=== PATIENT | male | born 1990 | race Asian ===

== ENCOUNTER 2016-11-07 16:36 | Emergency (ER) | payer OTHER ==
[2016-11-07 19:35] LABS: Hematocrit 45 % (42-52); Hemoglobin 15.2 g/dl (14.0-18.0); Mean Corpuscular HGB Conc 34 g/dl (31-36); Mean Corpuscular Hemoglobin 30 pg (27-31); Mean Corpuscular Volume 87 fL (80-94); Mean Platelet Volume 8 um3 (7.4-10.4); Red Blood Count 5.14 10^6/ul (4.0-5.4); Red Cell Distribution Width 13 % (10.5-15); White Blood Count 11.8 10^3/ul (3.5-10.8)
[2016-11-07 19:43] LABS: Albumin 4.8 g/dL (3.2-5.2); BUN/Creatinine Ratio 17.5 (8-20); Calcium 9.8 mg/dL (8.6-10.3); EGFR African American 149.1 (>60); Globulin 3.2 g/dL (2-4); Magnesium 2.3 mg/dL (1.9-2.7); Potassium 3.9 mmol/L (3.5-5.0); Total Bilirubin 0.5 mg/dL (0.2-1.0)
--- NOTE | 2016-11-07 19:43 | ED ---
Jc Ann Janilya, scribed for Luís Tran MD on 11/07/16 at 1927 . Shortness of Breath - HPI Summary HPI Summary: [place] 26 y/o [place] [facility] [place] gradual onset of constant SOB starting approximately 3-4 days ago. Pt states that on 11/03, he was diagnosed w/ possible asthma at a student [facility]. In addition, pt presents w/ body numbness including upper and lower extremities, back, neck, and face. Pt states that he feels tingly sensations all over his body. What made him come to the ED is the persistence of the numbness that prevents the pt form falling asleep. Pt reports mild fever. - History of Current Complaint Chief Complaint: EDShortnessOfBreath Time Seen by Provider: 11/07/16 16:52 Hx Obtained From: Patient Onset/Duration: Gradual Onset, Lasting Days, Still Present Timing: Constant Current Severity: Moderate Dyspnea At: Rest Aggrevating Factors: Nothing Alleviating Factors: Nothing Associated Signs & Symptoms: Fever - Allergy/Home Medications Allergies/Adverse Reactions: Allergies Allergy/AdvReac Type Severity Reaction Status Date / Time No Known Allergies Allergy Verified 11/07/16 16:44 PMH/Surg Hx/FS Hx/Imm Hx Previously Healthy: Yes Infectious Disease History: No Infectious Disease History: Reports: Traveled Outside the [place] in Last 30 Days - [place] - Family History Known Family History: Positive: Cardiac Disease Negative: Hypertension, Diabetes - Social History Occupation: Student Alcohol Use: None Substance Use Type: Reports: None Smoking Status (MU): Never Smoked Tobacco Review of Systems Positive: Fever - mild Positive: Shortness Of Breath Positive: Paresthesia - all of body including all extremities, back, neck, and face; describes the sensation as "tingly" All Other Systems Reviewed And Are Negative: Yes Physical Exam Triage Information Reviewed: Yes Vital Signs On Initial Exam: Initial Vitals Temp Pulse Resp BP Pulse Ox 97.4 F 70 17 142/90 96 11/07/16 16:40 11/07/16 16:40 11/07/16 16:40 11/07/16 16:40 11/07/16 16:40 Vital Signs Reviewed: Yes Appearance: Positive: Well-Appearing, No Pain Distress Skin: Positive: Warm Eyes: Positive: EOMI, HARSHAD ENT: Positive: Hearing grossly normal Neck: Positive: Supple Respiratory/Lung Sounds: Positive: Breath Sounds Present, Decreased Breath Sounds Cardiovascular: Positive: RRR. Negative: Murmur Abdomen Description: Positive: Nontender, Soft Bowel Sounds: Positive: Present Musculoskeletal: Positive: Strength/ROM Intact Neurological: Positive: Sensory/Motor Intact, Alert, Oriented to Person Place, Time, CN Intact II-III, Normal Gait Psychiatric: Positive: Anxious - Rosmery Coma Scale Coma Scale Total: 15 Diagnostics - Vital Signs Vital Signs Temp Pulse Resp BP Pulse Ox 11/07/16 18:00 98.6 F 88 15 129/76 96 11/07/16 16:40 97.4 F 70 17 142/90 96 - Laboratory Lab Results: Lab Results 11/07/16 Range/Units 19:10 WBC 11.8 H (3.5-10.8) 10^3/ul RBC 5.14 (4.0-5.4) 10^6/ul Hgb 15.2 (14.0-18.0) g/dl Hct 45 (42-52) % MCV 87 (80-94) fL MCH 30 (27-31) pg MCHC 34 (31-36) g/dl RDW 13 (10.5-15) % Plt Count 241 (150-450) 10^3/ul MPV 8 (7.4-10.4) um3 Neut % (Auto) 90.7 H (38-83) % Lymph % (Auto) 8.1 L (25-47) % Nobles % (Auto) 1.1 (1-9) % Eos % (Auto) 0 (0-6) % Baso % (Auto) 0.1 (0-2) % Absolute Neuts (auto) 10.7 H (1.5-7.7) 10^3/ul Absolute Lymphs (auto) 1.0 (1.0-4.8) 10^3/ul Absolute Monos (auto) 0.1 (0-0.8) 10^3/ul Absolute Eos (auto) 0 (0-0.6) 10^3/ul Absolute Basos (auto) 0 (0-0.2) 10^3/ul Absolute Nucleated RBC 0 10^3/ul Nucleated RBC % 0 Result Diagrams: 11/07/16 19:10 11/07/16 19:10 Lab Statement: Any lab studies that have been ordered have been reviewed, and results considered in the medical decision making process. - Radiology CXR Xray Interpretation: No Acute Changes - IMPRESSION: normal Radiology Interpretation Completed By: ED Physician - Dr. Tran - EKG 1648 Cardiac Rate: NL - 67 bpm EKG Rhythm: Sinus Rhythm ST Segment: Normal Ectopy: None Re-Evaluation - Re-Evaluation First Eval Change: Improved - results d/w pt, explained no neuro deficits noted, lyted wnl , rec f/u pcp for further eval Course/Dx - Diagnoses Provider Diagnoses: Shortness of breath, Paresthesia Discharge - Discharge Plan Condition: Stable Disposition: HOME Patient Education Materials: Dyspnea (ED), Paresthesia (ED) Referrals: [facility] HOMAR Ball [Primary Care Provider] - Additional Instructions: Follow up with your primary care provider or [facility]. The documentation as recorded by the Jc dejesus Janilya accurately reflects the service I personally performed and the decisions made by , Luís Tran MD.
--- NOTE | 2016-11-07 20:45 | RAD ---
Indication: Shortness of breath. 2 views of the chest including dual energy PA views demonstrate no mediastinal shift. Heart is of normal size and configuration. Lung hodges demonstrate no pleural fluid, pneumonia or pneumothorax. IMPRESSION: No active cardiopulmonary disease is noted.
[2016-11-07 20:48] VITALS: BP 106/63
== END 2016-11-07 20:48 | disposition home or self-care (01) ==
LOC: ED 16:36
DX: R20.9 Unspecified disturbances of skin sensation (principal); R06.02 Shortness of breath; R50.9 Fever, unspecified
CPT/HCPCS: 36415; 71020; 80053; 83735; 85025; 93005; 99282